=== PATIENT | female | born 1975 | race Caucasian/White ===

== ENCOUNTER 2019-04-29 11:19 | Emergency (ER) | payer SELFPAY ==
[~2019-04-29] VITALS: Ht 154.9 cm; Wt 72.7 kg
[2019-04-29 11:26] VITALS: BP 135/83
[2019-04-29] MEDS ORDERED: DiphenhydrAMINE HCL 50 MG/ML VIAL IM ONE (12:45)
[2019-04-29] MEDS ORDERED: DEXAMETHASONE SOD PHOS 4 MG/ML 5 ML VIAL IM ONE (12:45)
== END 2019-04-29 13:12 | disposition home or self-care (01) ==
LOC: EMS 11:24
DX: L25.9 Unspecified contact dermatitis, unspecified cause (principal)
CPT/HCPCS: 96372; 99283; J1100; J1200